=== PATIENT | male | born 1975 | race Asian ===

== ENCOUNTER 2016-05-20 11:25 | Emergency (ER) | payer MEDICAID ==
[2016-05-20] MEDS ORDERED: ASPIRIN 81 MG TABLET, CHEWABLE PO ONE (11:54)
--- NOTE | 2016-05-20 11:55 | ER Document Report ---
ED Medical Screen (RME) - General Stated Complaint: CHEST PAIN Mode of Arrival: Ambulatory Information source: Patient Notes: Patient complains of left-sided chest pain, left-sided neck and left upper extremity pain that started yesterday evening. Patient reports mild cough. Patient denies any nausea or vomiting. Patient does complain of some shortness of breath. hx: Herniated disc in the neck I have greeted and performed a rapid initial assessment of this patient. A comprehensive ED assessment and evaluation of the patient, analysis of test results and completion of the medical decision making process will be conducted by additional ED providers. TRAVEL OUTSIDE OF THE [place] IN LAST 30 DAYS: No - Related Data Allergies/Adverse Reactions: No Known Allergies Allergy (Verified 05/20/16 11:53) Physical Exam - Cardiovascular Rhythm: Tachycardia Heart sounds: S1 appreciated, S2 appreciated
[2016-05-20 12:25] LABS: ABSOLUTE EOSINOPHILS # (AUTO) 0.2 10^3/uL (0.0-0.6); ABSOLUTE LYMPHOCYTES (AUTO) 2.5 10^3/uL (0.5-4.7); ABSOLUTE MONOCYTES (AUTO) 1.2 10^3/uL (0.1-1.4); ABSOLUTE NEUT (AUTO) 4.2 10^3/uL (1.7-8.2); BASOPHILS % (AUTO) 0.5 % (0-2); EOSINOPHILS % (AUTO) 2.1 % (0-6); HEMATOCRIT 46.9 % (37.9-51.0); HEMOGLOBIN 16.3 g/dL (13.5-17.0); LYMPHOCYTES % (AUTO) 31.5 % (13-45); MEAN CORPUSCULAR HEMOGLOBIN 31.2 pg (27.0-33.4); MEAN CORPUSCULAR HGB CONC 34.7 g/dL (32.0-36.0); MEAN CORPUSCULAR VOLUME 90 fl (80-97); MONOCYTES % (AUTO) 14.7 % (3-13); RED BLOOD COUNT 5.21 10^6/uL (4.35-5.55); RED CELL DISTRIBUTION WIDTH 12.7 % (11.5-14.0); SEGMENTED NEUTROPHILS % (AUTO) 51.2 % (42-78); WHITE BLOOD COUNT 8.1 10^3/uL (4.0-10.5)
[2016-05-20 12:43] LABS: ALANINE AMINOTRANSFERASE 62 U/L (21-72); ALBUMIN 4.2 g/dL (3.5-5.0); ALKALINE PHOSPHATASE 73 U/L (38-126); ANION GAP 13 (5-19); ASPARTATE AMINO TRANSFERASE 27 U/L (17-59); BILIRUBIN,TOTAL 0.5 mg/dL (0.2-1.3); BLOOD UREA NITROGEN 17 mg/dL (7-20); CALCIUM 9.7 mg/dL (8.4-10.2); CARBON DIOXIDE 28 mmol/L (22-30); CHLORIDE 101 mmol/L (98-107); CREATINE KINASE 78 U/L (55-170); CREATININE RESULT 1.18 mg/dL (0.52-1.25); GLUCOSE 74 mg/dL (75-110); LIPASE 136.4 U/L (23-300); POTASSIUM 3.6 mmol/L (3.6-5.0); SODIUM 141.6 mmol/L (137-145); TOTAL PROTEIN 7.7 g/dL (6.3-8.2)
[2016-05-20 12:54] LABS: CREATINE KINASE MB 0.28 ng/mL (<4.55)
[2016-05-20 12:55] LABS: TROPONIN I < 0.012 ng/mL
[2016-05-20] MEDS ORDERED: LORAZEPAM INJ 2 MG/1 ML VIAL IV ONE (13:34)
--- NOTE | 2016-05-20 13:40 | ER Document Report ---
ED General - General Chief Complaint: Shoulder Pain Stated Complaint: CHEST PAIN Mode of Arrival: Ambulatory Information source: Patient Notes: This is a 40-year-old gentleman who presents to the emergency department with exacerbation of his left-sided neck pain. As a history of significant cervical disc disease and has been recommended to have surgery. Today he states that the pain is so great that it has radiated into the left side of his chest. He also has left upper extremity pain. This chest pain and left upper extremity pain are new and different from his prior complaints. The chest pain began yesterday at rest and has been intermittent since. He reports mild shortness of breath associated with the pain. No nausea or vomiting no diaphoresis. He is very anxious. Patient does bring a folder with him containing prior medical records from neurosurgical evaluation at [place]. Review of this information demonstrates that he has been recommended to have cervical surgical management and he has been instructed to call when he is ready to schedule the surgery. He states that he has been reluctant to do so because he is nervous about surgery. However he admits that his symptoms have been worsening. TRAVEL OUTSIDE OF THE [place] IN LAST 30 DAYS: No - Related Data Allergies/Adverse Reactions: No Known Allergies Allergy (Verified 05/20/16 11:53) Past Medical History - General Information source: Patient - Social History Smoking Status: Former Smoker Chew tobacco use (# tins/day): No Frequency of alcohol use: None Drug Abuse: None Family History: CVA, DM, Hypertension, Malignancy. denies: CAD Patient has suicidal ideation: No Patient has homicidal ideation: No Renal/ Medical History: Denies: Hx Peritoneal Dialysis Psychiatric Medical History: Reports: Hx Anxiety, Hx Attention Deficit Hyperactivity Disorder, Hx Depression Surgical Hx: Negative Past Surgical History: Reports: None Review of Systems - Review of Systems Notes: REVIEW OF SYSTEMS: CONSTITUTIONAL : Denies fever, chills, or sweats. Denies recent illness. EENT: Denies eye, ear, throat, or mouth pain or symptoms. Denies nasal or sinus congestion. CARDIOVASCULAR: as per HPI. No palpitations, no syncope/presyncope RESPIRATORY: Denies cough, cold, or chest congestion. Denies difficulty breathing, or wheezing. GASTROINTESTINAL: Denies abdominal pain. Denies nausea, vomiting, or diarrhea. Denies constipation. GENITOURINARY: Denies difficulty urinating, painful urination, burning, frequency, or blood in urine. MUSCULOSKELETAL: Neck and LUE pain as per HPI. Patient does endorse left upper extremity weakness and trouble controlling his left hand some time which is not new for him and he has been told that without the neck surgery the symptoms will get worse. SKIN: Denies rash or skin lesions. HEMATOLOGIC : Denies easy bruising or bleeding. LYMPHATIC: Denies swollen, enlarged glands. NEUROLOGICAL: Denies altered mental status or loss of consciousness. Denies headache. PSYCHIATRIC: endorses increased anxiety from his baseline anxiety ALL OTHER SYSTEMS REVIEWED AND NEGATIVE. Physical Exam - Vital signs Vitals: Temp Pulse Resp BP Pulse Ox 98.9 F 122 H 24 H 118/68 99 05/20/16 11:53 05/20/16 11:53 05/20/16 11:53 05/20/16 11:53 05/20/16 11:53 - Notes Notes: PHYSICAL EXAMINATION: GENERAL: well-nourished adult male, conversant, appears very anxious and somewhat tremulous at times. HEAD: Atraumatic, normocephalic. EYES: Pupils equal round and reactive to light, extraocular movements intact, sclera anicteric, conjunctiva are normal. ENT: nares patent, oropharynx clear without exudates. Moist mucous membranes. NECK: Normal range of motion, supple without lymphadenopathy LUNGS: Breath sounds clear to auscultation bilaterally and equal. No wheezes rales or rhonchi. HEART: Regular rate and rhythm without murmurs ABDOMEN: Soft, nontender, normoactive bowel sounds. No guarding, no rebound. No masses appreciated. EXTREMITIES: Normal range of motion, no pitting or edema. No cyanosis. NEUROLOGICAL: Cranial nerves grossly intact. Decreased rehabilitation medicine physician strength L hand. Decreased upper arm extensors LUE. Sensation intact PSYCH: very nervous, anxious affect but pleasant and cooperative SKIN: Warm, Dry, normal turgor, no rashes or lesions noted. Course - Re-evaluation Re-evalutation: 05/20/16 15:02 Patient reevaluated. He states he is feeling significantly better after the Ativan. He still has an anxious affect however he states that his arm pain is gone. 05/20/16 16:55 Results of the second troponin is negative. I had a long discussion with the patient about his lab evaluation and presentation today. He had complete symptom resolution after the IV Ativan. I do suspect that some of his symptoms today are secondary to anxiety along with his worsening cervical radiculopathy he has been anxious and nervous about scheduling the recommended surgery for this and so he has been avoiding it. After our discussion today he has decided that he will proceed with neurosurgical evaluation and treatment, and has decided to call his neurosurgeon in [place] tomorrow. We did discuss the option of admission for observation for chest pain and to obtain a stress test today, however the patient is not agreeable to this at this time. He states that he will follow up with his primary care doctor this week and discuss an outpatient stress test and that in the interim if he has any recurrence of chest discomfort he will return to the emergency department immediately I do feel that from a cardiac standpoint he is relatively low risk as he quit smoking 5 years ago and has no family history of coronary artery disease. He also has no known history of hypertension, hyperlipidemia, or diabetes. Also as noted above he had complete symptom relief after 1 dose of Ativan. All of his questions and that of his family are answered and they are all comfortable with the plan. Patient is reliable to return for worsening symptoms. 05/20/16 17:06 - Vital Signs Vital signs: Temp Pulse Resp BP Pulse Ox 98.9 F 122 H 20 128/91 H 96 05/20/16 11:53 05/20/16 11:53 05/20/16 13:01 05/20/16 13:01 05/20/16 13:01 - Laboratory Result Diagrams: 05/20/16 12:11 05/20/16 12:11 Laboratory results interpreted by me: 05/20/16 05/20/16 05/20/16 12:11 12:11 15:48 Monocytes % 14.7 H Glucose 74 L Urine Protein 30 H Urine Ketones TRACE H Urine Bilirubin SMALL H Urine Ascorbic Acid 40 H - Diagnostic Test Radiology reviewed: Reports reviewed - EKG Interpretation by Me EKG shows normal: Sinus rhythm Rate: Tachycardia Rhythm: NSR [place]/QRS: No: Right axis deviation, Left axis deviation, RBBB, LBBB, IVCD, LAHB/ LAFB, LPHB/LPFB, Bifasicular block P Waves: No: JACQUE, LAE, Absent, AV Dissociation, Other When compared to previous EKG there are: Previous EKG unavailable Discharge - Discharge Clinical Impression: Cervical radiculopathy due to degenerative joint disease of spine, Acute anxiety Chest pain Qualifiers: Chest pain type: unspecified Qualified Code(s): R07.9 - Chest pain, unspecified Condition: Good Disposition: HOME, SELF-CARE Additional Instructions: CHEST PAIN OF UNCLEAR CAUSE: The exact cause of your chest pain isn't clear. Fortunately, there is no evidence of a dangerous medical condition. Further testing may be required to find the source of the pain. Most often, we find that this pain is coming from the chest wall -- the muscles or rib joints in the chest. But chest pain can come from the lung and lung lining, the esophagus, the heart valves or heart lining, and even the stomach or gallbladder. Rest. Eat lightly until the pain is gone. We may prescribe medicine for pain and inflammation. You should call the physician immediately if the pain radiates to the shoulder, jaw or arms; if you start to run a fever or develop a cough; or if you develop shortness of breath, or other new or alarming symptoms. NORMAL EXAM AND WORKUP: At this time, your examination and workup show no significant abnormality. No significant abnormal physical findings were noted. All laboratory studies that were ordered show no significant abnormality. Although your examination and all studies that were ordered showed no significant abnormal finding, there are no examinations and no studies that are 100% accurate. There is always the possibility that some abnormality could exist and not be detected with physical examination or within the limits and capabilities of laboratory and other studies. You should return or follow up as you were instructed on your visit today for further evaluation if your symptoms do not resolve. FOLLOW-UP CARE: If you have been referred to a physician for follow-up care, call the physician s office for an appointment as you were instructed or within the next two days. If you experience worsening or a significant change in your symptoms, notify the physician immediately or return to the Emergency Department at any time for re-evaluation. Follow up with neurosurgery at [place] this week (call tomorrow) as discussed. Continue your current pain control regiment. Follow up with your primary care physician to arrange outpatient stress test, and as we discussed, return to ER for any recurrent chest pain or any worsening symptoms or concerns.
[2016-05-20 16:09] LABS: APPEARANCE,URINE SLIGHTLY-CLOUDY; BILIRUBIN,URINE SMALL (NEGATIVE); GLUCOSE, URINE NEGATIVE (NEGATIVE); KETONES,URINE TRACE mg/dL (NEGATIVE); LEUKOCYTE ESTERASE,URINE NEGATIVE (NEGATIVE); NITRITE,URINE NEGATIVE (NEGATIVE); PROTEIN,URINE 30 mg/dL (NEGATIVE); UROBILINOGEN,URINE NEGATIVE mg/dL (<2.0)
[2016-05-20 16:25] LABS: URINE BARBITURATES SCREEN NEGATIVE; URINE METHADONE SCREEN NEGATIVE; URINE OPIATES LOW NEGATIVE; URINE PHENCYCLIDINE SCREEN NEGATIVE
[2016-05-20 17:20] VITALS: BP 123/89
--- NOTE | 2016-05-20 19:31 | EKG REPORT ---
SEVERITY:- BORDERLINE ECG - SINUS TACHYCARDIA CONSIDER ANTERIOR INFARCT : Confirmed by: Caleb Murray 20-May-2016 19:31:05
--- NOTE | 2016-05-20 19:31 | EKG REPORT ---
SEVERITY:- ABNORMAL ECG - SINUS RHYTHM CONSIDER ANTEROSEPTAL INFARCT : Confirmed by: Caleb Murray 20-May-2016 19:30:59
== END 2016-05-20 17:21 | disposition home or self-care (01) ==
LOC: ER 11:25
DX: M47.22 Other spondylosis with radiculopathy, cervical region (principal); R07.9 Chest pain, unspecified; M54.2 Cervicalgia; M25.512 Pain in left shoulder; Z87.891 Personal history of nicotine dependence
CPT/HCPCS: 93005; 99284; 96374; 36415; 82553; 82550; 83690; 85025; 80053; 81001; 84484; 80307; 85379; 71020; 93010; J2060

== ENCOUNTER → 2016-08-14 | Outpatient (CLI) | payer MEDICAID ==
--- NOTE | 2016-08-14 13:26 | EKG REPORT ---
SEVERITY:- ABNORMAL ECG - SINUS RHYTHM CONSIDER ANTEROSEPTAL INFARCT : Confirmed by: Oliver Nicholson MD 14-Aug-2016 13:25:20
== END ==
LOC: OD 11:31
PROVIDERS: ATTEND Family Medicine
DX: R07.9 Chest pain, unspecified (principal)
CPT/HCPCS: 93005; 93010

== ENCOUNTER → 2017-04-12 | Outpatient (CLI) | payer MEDICAID ==
[2017-04-12 14:59] LABS: HEMATOCRIT 45.6 % (37.9-51.0); HEMOGLOBIN 15.5 g/dL (13.5-17.0); MEAN CORPUSCULAR HEMOGLOBIN 30.7 pg (27.0-33.4); MEAN CORPUSCULAR VOLUME 90 fl (80-97); PLATELET COUNT 296 10^3/uL (150-450); RED BLOOD COUNT 5.04 10^6/uL (4.35-5.55); RED CELL DISTRIBUTION WIDTH 13.7 % (11.5-14.0); WHITE BLOOD COUNT 5.9 10^3/uL (4.0-10.5)
[2017-04-12 15:19] LABS: ALANINE AMINOTRANSFERASE 23 U/L (21-72); ALBUMIN 4.4 g/dL (3.5-5.0); ALKALINE PHOSPHATASE 52 U/L (38-126); ANION GAP 9 (5-19); ASPARTATE AMINO TRANSFERASE 17 U/L (17-59); BILIRUBIN,DIRECT 0.2 mg/dL (0.0-0.4); BILIRUBIN,TOTAL 0.6 mg/dL (0.2-1.3); BLOOD UREA NITROGEN 15 mg/dL (7-20); CALCIUM 9.7 mg/dL (8.4-10.2); CARBON DIOXIDE 29 mmol/L (22-30); CHLORIDE 103 mmol/L (98-107); CHOLESTEROL 188.84 mg/dL (0-200); GLUCOSE 125 mg/dL (75-110); MAGNESIUM 1.8 mg/dL (1.6-2.3); SODIUM 140.9 mmol/L (137-145); TOTAL PROTEIN 7.1 g/dL (6.3-8.2); TRIGLYCERIDES 124 mg/dL (<150)
[2017-04-12 15:30] LABS: DIRECT LDL 131 mg/dL (<100)
[2017-04-12 15:33] LABS: FREE T4 (FREE THYROXINE) 0.94 ng/dL (0.78-2.19)
[2017-04-12 15:47] LABS: THYROID STIMULATING HORMONE 0.95 uIU/mL (0.47-4.68)
--- NOTE | 2017-04-12 16:23 | RADIOLOGY REPORT (SQ) ---
EXAM DESCRIPTION: L SPINE WHOLE COMPLETED DATE/TIME: 04/12/2017 3:13 pm REASON FOR STUDY: ACUTE BILATERAL LOW BACK PAIN M54.5 LOW BACK PAIN COMPARISON: None. NUMBER OF VIEWS: Five views including obliques. TECHNIQUE: AP, lateral, oblique, and sacral radiographic images acquired of the lumbar spine. LIMITATIONS: None. FINDINGS: MINERALIZATION: Normal. SEGMENTATION: Normal. No transitional anatomy. ALIGNMENT: Normal. VERTEBRAE: Maintained height. No fracture or worrisome bone lesion. DISCS: Preserved height. No significant osteophytes or end plate irregularity. POSTERIOR ELEMENTS: Pedicles and facets are intact. No pars defect or posterior arch defects. HARDWARE: None in the spine. PARASPINAL SOFT TISSUES: Normal. PELVIS: Intact as visualized. No fractures or worrisome bone lesions. SI joints intact. OTHER: No other significant finding. IMPRESSION: NORMAL 5 VIEW LUMBAR SPINE. TECHNICAL DOCUMENTATION: JOB ID: [id number] [employer]- All Rights Reserved
== END ==
LOC: OD 14:26
PROVIDERS: ATTEND Family Medicine
DX: M54.5 Low back pain (principal); R00.2 Palpitations; R06.09 Other forms of dyspnea; Z79.899 Other long term (current) drug therapy
CPT/HCPCS: 36415; 72110; 80048; 80061; 80076; 83735; 84439; 84443; 85027

== ENCOUNTER 2017-05-14 11:55 | Day surgery (SDC) | payer MEDICAID ==
[~2017-05-14 11:55] MED LIST: DIPHENHYDRAMINE HCL 50 MG/ML VIAL ONE; EPINEPHRINE INJ 1 MG/10 ML DISP.SYRIN ONE; FLUMAZENIL INJ 0.5 MG/5 ML VIAL ONE; GLUCAGON,HUMAN RECOMB 1 MG INJ ONE; MIDAZOLAM 2 MG/2 ML INJ ONE; NALOXONE HCL INJ/PF 0.4 MG/1 ML SDV ONE; ONDANSETRON HCL INJ/PF 4 MG/2 ML SDV ONE
[2017-05-14] MEDS: MIDAZOLAM 2 MG/2 ML INJ ONE ×2 (12:24→12:28)
[2017-05-14] MEDS ORDERED: BENZOCAINE 20% AEROSOL SPRAY 60 GM ONE (12:24)
[2017-05-14] MEDS: FENTANYL CITRATE INJ/PF 100 MCG/2 ML AMPUL ONE ×2 (12:26→12:30)
--- NOTE | 2017-05-14 13:27 | Operative Report ---
Operative Report DATE OF SURGERY: 05/14/17 Operative Report: The risks benefits and alternatives of the procedure explained to the patient in detail and informed consent is obtained.A GIF Olympus video scope was inserted into the patient's mouth and hypopharynx, the esophagus is identified intubated and insufflated ,the scope was then advanced through the esophagus stomach and duodenum, retroflexion maneuver is done, the esophagus stomach and first and second portions of the duodenum examined PREOPERATIVE DIAGNOSIS: Dysphagia POSTOPERATIVE DIAGNOSIS: Esophageal rings noted status post biopsy rule out eosinophilic esophagitis. Gastritis status post biopsy rule out Helicobacter pylori OPERATION: EGD with biopsy SURGEON: DORIAN DICKINSON ANESTHESIA: Moderate Sedation - 4 mg of Versed, 100 mcg of fentanyl. Conscious sedation monitoring time 30 minutes. TISSUE REMOVED OR ALTERED: As noted above. COMPLICATIONS: None. ESTIMATED BLOOD LOSS: None. INTRAOPERATIVE FINDINGS: As noted above. PROCEDURE: Patient tolerated procedure well. No immediate postprocedure complications are noted. Patient discharged in good condition. Discharge date 05/14/2017. Discharge diet: Regular. Discharge activity: Regular. 2-3 week follow-up to discuss findings. Patient is instructed to call the office or proceed to the emergency room should there be any further problems or questions. We will await pathology.
[2017-05-14 13:39] VITALS: BP 115/80
== END 2017-05-14 13:40 | disposition home or self-care (01) ==
LOC: END 11:55
PROVIDERS: ATTEND Internal Medicine Gastroenterology
PROC: 0DB68ZX Excision of Stomach, Via Natural or Artificial Opening Endoscopic, Diagnostic (ICD-10-PCS; 2017-05-14)
PROC: 0DB58ZX Excision of Esophagus, Via Natural or Artificial Opening Endoscopic, Diagnostic (ICD-10-PCS; principal; 2017-05-14 12:30)
DX: K22.2 Esophageal obstruction (principal); K29.50 Unspecified chronic gastritis without bleeding; Z79.899 Other long term (current) drug therapy
CPT/HCPCS: 43239; 88305 ×2; J2250; J3490; J3010; J0171; J1200; J1610; J2310; J2405

== ENCOUNTER 2017-06-06 09:46 | Emergency (ER) | payer MEDICAID ==
[2017-06-06] MEDS ORDERED: HYDROXYZINE PAMOATE 25 MG CAPSULE PO ONE (10:36)
[2017-06-06 10:42] LABS: ABSOLUTE LYMPHOCYTES (AUTO) 2.7 10^3/uL (0.5-4.7); ABSOLUTE MONOCYTES (AUTO) 0.5 10^3/uL (0.1-1.4); ABSOLUTE NEUT (AUTO) 5.1 10^3/uL (1.7-8.2); BASOPHILS % (AUTO) 0.5 % (0-2); EOSINOPHILS % (AUTO) 0.5 % (0-6); HEMATOCRIT 49.4 % (37.9-51.0); HEMOGLOBIN 16.9 g/dL (13.5-17.0); MEAN CORPUSCULAR HEMOGLOBIN 30.9 pg (27.0-33.4); MEAN CORPUSCULAR HGB CONC 34.2 g/dL (32.0-36.0); MEAN CORPUSCULAR VOLUME 90 fl (80-97); MONOCYTES % (AUTO) 6.3 % (3-13); PLATELET COUNT 392 10^3/uL (150-450); RED BLOOD COUNT 5.48 10^6/uL (4.35-5.55); RED CELL DISTRIBUTION WIDTH 13.4 % (11.5-14.0); SEGMENTED NEUTROPHILS % (AUTO) 60.7 % (42-78); TOTAL CELLS COUNTED % (AUTO) 100 %; WHITE BLOOD COUNT 8.4 10^3/uL (4.0-10.5)
--- NOTE | 2017-06-06 10:50 | ER Document Report ---
ED General - General Chief Complaint: General Weakness Stated Complaint: WEAKNESS Time Seen by Provider: 06/06/17 10:17 Notes: Patient was at his car shakeout operator's office this morning to have a Holter monitor placed when he began to feel very weak in his legs and numb in his feet, legs, hands, and face. They just suddenly "went numb". He has never had anything like this happen before. He also experienced some difficulty breathing, but he has had this difficulty since he was a teenager. Also has had chest pains and palpitations since his teens, but none at this moment. Patient felt as if he might pass out so he was assisted down and never experienced a loss of consciousness. He did not feel nauseated and did not vomit. He has not been sick recently. No fevers, chills, sweats, etc. Patient has a history of anxiety and depression on Wellbutrin and Celexa. Has chronic pain in his lumbar back and is scheduled to have an MRI. Has had a neck fusion. Has never had any documented cardiac disease. Does not take any medications for diabetes, high blood pressure, or for heart disease. TRAVEL OUTSIDE OF THE [place] IN LAST 30 DAYS: No - Related Data Allergies/Adverse Reactions: No Known Allergies Allergy (Verified 05/14/17 12:00) Past Medical History - Social History Smoking Status: Former Smoker Cigarette use (# per day): No Family History: Reviewed & Not Pertinent, CVA, DM, Hypertension, Malignancy. denies: CAD - Past Medical History Cardiac Medical History: Denies: Hx Coronary Artery Disease, Hx Heart Attack, Hx Hypertension Pulmonary Medical History: Reports: Hx Asthma - HX Denies: Hx Bronchitis, Hx COPD, Hx Pneumonia Neurological Medical History: Denies: Hx Cerebrovascular Accident, Hx Seizures Endocrine Medical History: Denies: Hx Diabetes Mellitus Type 1, Hx Diabetes Mellitus Type 2 Musculoskeltal Medical History: Denies Hx Arthritis Psychiatric Medical History: Reports: Hx Anxiety, Hx Attention Deficit Hyperactivity Disorder, Hx Depression Past Surgical History: Reports: Hx Orthopedic Surgery - Cervical fusion - Immunizations Hx Diphtheria, Pertussis, Tetanus Vaccination: Yes Review of Systems - Review of Systems Notes: REVIEW OF SYSTEMS: CONSTITUTIONAL : Denies fever. Appears anxious. EENT: Denies eye, ear, nose or mouth or throat pain or other symptoms. CARDIOVASCULAR: See HPI. RESPIRATORY: See HPI. GASTROINTESTINAL: Denies abdominal pain or nausea, vomiting, or diarrhea. GENITOURINARY: Denies difficulty or painful urinating, urinary frequency, blood in urine. MUSCULOSKELETAL: Denies back or neck pain. Denies joint pain or swelling. SKIN: Denies rash or skin lesions. NEUROLOGICAL: Denies LOC or altered mental status. Denies headache. Denies sensory loss or motor deficits. ALL OTHER SYSTEMS REVIEWED AND NEGATIVE. Physical Exam - Vital signs Vitals: Temp Resp BP 97.9 F 21 H 118/92 H 06/06/17 09:55 06/06/17 09:55 06/06/17 09:55 Interpretation: Normal - Notes Notes: PHYSICAL EXAMINATION: GENERAL: Well-appearing, in no acute distress. Anxious appearing. HEAD: Atraumatic, normocephalic. EYES: Pupils equal round and reactive to light, extraocular movements intact. ENT: oropharynx clear without exudates. Moist mucous membranes. NECK: Normal range of motion, supple. LUNGS: Breath sounds clear and equal bilaterally. HEART: Regular rate and rhythm without murmurs. ABDOMEN: Soft, nontender. No guarding or rebound. No masses. BACK: No tenderness throughout entire back. EXTREMITIES: Normal range of motion without pain. Negative Homans bilaterally. NEUROLOGICAL: Normal speech, normal gait. Normal sensory, motor, and reflex exams. Awake, alert, and oriented x3. Cranial nerves normal. PSYCH: Normal mood, normal affect. Anxious appearing, may be depressed. Denies suicidal or homicidal thoughts. SKIN: Warm, dry, no rashes. Course - Re-evaluation Re-evalutation: 06/06/17 19:07 Patient's bicarb level and anion gap and ketones in the urine are concerning, but the patient says he has not been eating or drinking well. I encouraged him to drink plenty of liquids over the next few days and see if he is not feeling better. - Vital Signs Vital signs: Temp Pulse Resp BP Pulse Ox 98.5 F 80 18 117/82 100 06/06/17 12:31 06/06/17 12:31 06/06/17 12:31 06/06/17 12:31 06/06/17 12:31 - Laboratory Result Diagrams: 06/06/17 09:37 06/06/17 09:37 Laboratory results interpreted by me: 06/06/17 06/06/17 09:37 11:35 Carbon Dioxide 16 L Anion Gap 21 H Direct Bilirubin 0.5 H Urine Ketones 80 H Urine Urobilinogen 2.0 H - EKG Interpretation by Me EKG shows normal: Sinus rhythm Rate: Normal - Heart rate 82 Rhythm: NSR Additional EKG results interpreted by me: 06/06/17 10:51 EKG has nonspecific T-wave and ST changes, nothing acute. Discharge - Discharge Clinical Impression: Dehydration, Anxiety Condition: Stable Disposition: HOME, SELF-CARE Additional Instructions: Dehydration Dehydration can result from vomiting or diarrhea, fever, or decreased intake of fluids. If severe, hospitalization and intravenous fluids may be required. Most cases are treated at home with fluids by mouth. For the next 24 hours, drink lots of clear fluids. In mild cases, this can be soda pop or sports drinks. For more severe dehydration, the doctor may recommend special fluids such as Pedialyte or Lytren. Try to get three liters ( 3 quarts) of fluid per day. If vomiting occurs, continue to drink the fluids frequently (every 15 to 20 minutes), but in small amounts (one or two ounces). Depending on the type of dehydration, the doctor may prescribe antinausea medicine or potassium replacements. Call the doctor or return for re-examination if you become progressively weak, vomit repeatedly, or have other new symptoms. NORMAL EXAM AND WORKUP: At this time, except for your blood and urine indicating that she may be somewhat dehydrated, your examination and workup show no significant abnormality. No significant abnormal physical findings were noted. All laboratory, EKG, and imaging (x-ray, CT scans, ultrasound) studies that were ordered show no significant abnormality. Although your examination and all studies that were ordered showed no significant abnormal finding, there are no examinations and no studies that are 100% accurate. There is always the possibility that some abnormality could exist and not be detected with physical examination or within the limits and capabilities of laboratory and other studies. You should return or follow up as you were instructed on your visit today for further evaluation if your symptoms do not resolve. Anxiety The physician feels that some of your health problems are being caused by anxiety. Anxiety affects your health in many ways. Anxiety alone can cause palpitations, sweats, chest pains, abdominal pains, shortness of breath, and headaches. It contributes to ulcer disease, high blood pressure, irritable bowel syndrome, and has been shown to cause flare-ups of many other diseases. Anxiety is not a simple disorder to treat. If the anxiety is due to recent life stresses, you may simply need time to "work through" the changes. If the anxiety is due to an underlying unhappiness with yourself or due to psychiatric disturbance, professional help will be needed. Your physician can refer you for further help if needed. Anti-anxiety medication is occasionally given if the stress is acute or if you are having trouble sleeping. Chronic or frequent use of these medications is not a good idea because the body becomes reliant on it, preventing you from dealing with life's normal stresses. FOLLOW-UP CARE: If you have been referred to a physician for follow-up care, call the physician s office for an appointment as you were instructed or within the next two days. If you experience worsening or a significant change in your symptoms, notify the physician immediately or return to the Emergency Department at any time for re-evaluation. See your doctor and car shakeout operator about completing your Holter monitor and other workup.
[2017-06-06 10:56] LABS: ALANINE AMINOTRANSFERASE 43 U/L (21-72); ALBUMIN 4.7 g/dL (3.5-5.0); ALKALINE PHOSPHATASE 71 U/L (38-126); ASPARTATE AMINO TRANSFERASE 28 U/L (17-59); BILIRUBIN,DIRECT 0.5 mg/dL (0.0-0.4); BILIRUBIN,TOTAL 1.2 mg/dL (0.2-1.3); BLOOD UREA NITROGEN 19 mg/dL (7-20); CALCIUM 10.2 mg/dL (8.4-10.2); CHLORIDE 102 mmol/L (98-107); GLUCOSE 96 mg/dL (75-110)
[2017-06-06 11:04] LABS: CARBON DIOXIDE 16 mmol/L (22-30); POTASSIUM 4.2 mmol/L (3.6-5.0); SODIUM 138.9 mmol/L (137-145)
[2017-06-06 11:08] LABS: ANION GAP 21 (5-19); CREATINE KINASE MB 0.44 ng/mL (<4.55)
[2017-06-06 11:09] LABS: TROPONIN I < 0.012 ng/mL
--- NOTE | 2017-06-06 11:15 | RADIOLOGY REPORT (SQ) ---
EXAM DESCRIPTION: CHEST PA/LAT COMPLETED DATE/TIME: 06/06/2017 10:52 am REASON FOR STUDY: Chest pain since he was a teenager COMPARISON: 05/20/2016 NUMBER OF VIEWS: Two view. TECHNIQUE: Frontal and lateral radiographic views of the chest acquired. LIMITATIONS: None. FINDINGS: LUNGS AND PLEURA: No opacities, masses or pneumothorax. No pleural effusion. MEDIASTINUM AND HILAR STRUCTURES: No masses or contour abnormalities. HEART AND VASCULATURE: Heart normal size. No evidence for failure. BONY STRUCTURES: No acute findings. HARDWARE: None. OTHER: No other significant finding. IMPRESSION: NO SIGNIFICANT RADIOGRAPHIC FINDING IN THE CHEST. TECHNICAL DOCUMENTATION: JOB ID: [id number] [employer]- All Rights Reserved
[2017-06-06 11:54] LABS: APPEARANCE,URINE SLIGHTLY-CLOUDY; BILIRUBIN,URINE NEGATIVE (NEGATIVE); COLOR,URINE YELLOW; GLUCOSE, URINE NEGATIVE (NEGATIVE); KETONES,URINE 80 mg/dL (NEGATIVE); LEUKOCYTE ESTERASE,URINE NEGATIVE (NEGATIVE); NITRITE,URINE NEGATIVE (NEGATIVE); PROTEIN,URINE NEGATIVE (NEGATIVE); URINE SPECIFIC GRAVITY 1.031
[2017-06-06 12:32] VITALS: BP 117/82
--- NOTE | 2017-06-06 13:24 | EKG REPORT ---
SEVERITY:- BORDERLINE ECG - SINUS RHYTHM CONSIDER ANTERIOR INFARCT : Confirmed by: Oliver Nicholson MD 06-Jun-2017 13:24:15
== END 2017-06-06 12:32 | disposition home or self-care (01) ==
LOC: ER 09:46
DX: E86.0 Dehydration (principal); F41.9 Anxiety disorder, unspecified; R53.1 Weakness; G89.29 Other chronic pain; M54.5 Low back pain; Z87.891 Personal history of nicotine dependence
CPT/HCPCS: 93005; 99285; 36415; 82553; 85025; 80053; 81001; 84484; 71046; 93010; J3490

== ENCOUNTER → 2017-07-09 | Outpatient (CLI) | payer MEDICAID ==
--- NOTE | 2017-07-11 08:45 | RADIOLOGY REPORT ---
STRESS TEST REPORT PATIENT NAME: KARL VARNER ROOM#: DATE OF SERVICE: 07/09/2017 AGE: 41Y ORDER#: [id number] REFERRING MD: CISCO VELA M.D. INDICATION: Assess exertional dyspnea. PROCEDURE PERFORMED: REST/STRESS SINGLE ISOTOPE CARDIOLITE SPECT IMAGING WITH EXERCISE STRESS AND GATED SPECT IMAGING CLINICAL HISTORY: This 41-year-old male with no known coronary artery disease but has been complaining of mild palpitations and exertional dyspnea, no coronary artery risk factors. REPORT: Patient performed treadmill exercise using a standard Jair protocol completing only three minutes and an estimated workload of 4 METs. The resting heart rate was 108 bpm and increased to 153 bpm at peak exercise. This was 88% of the maximum predicted heart rate for age. The blood pressure response to exercise was normal, resting blood pressure was 125/88 and blood pressure at peak exercise was 137/77. Patient developed symptoms of severe exertional dyspnea, 3.5/5, after one minute of exercise at a heart rate of 135 bpm. He was unable to continue exercise beyond the three minutes. The resting 12-lead EKG showed normal sinus rhythm at 90 bpm, nonspecific lateral STT changes. At peak exercise, no additional STT changes to suggest ischemia were seen. Myocardial perfusion was performed at rest 60 minutes following the injection of 10.89 mCi of Cardiolite. At peak exercise, the patient was injected with 28.1 mCi of Cardiolite and exercise continued for one more minute. Gated post-stress tomographic imaging was performed 60 minutes after stress. FINDINGS: The overall quality of the study is fair. The left ventricular cavity is noted to be normal in size on both the rest and stress studies. There is no evidence of abnormal transient ischemic dilatation of the left ventricle. SPECT images showed a moderate fixed perfusion defect in the apical inferior wall with normal motion contraction in this area consistent with soft-tissue attenuation. There is no reversible ischemia. The gated SPECT imaging showed normal motion contraction of all LV segments. The left ventricular ejection fraction was calculated to be 41%. IMPRESSION: Myocardial perfusion imaging is normal. There is a small area of moderately fixed perfusion defect in the apical inferior wall but with normal motion contraction in that area, consistent with soft-tissue attenuation. There was no reversible ischemia. The left ventricular systolic function was 41%; this needs to be confirmed by echocardiography. There was no motion contraction abnormality in any of the left ventricular segments. No prior study for comparison. INTERPRETING PHYSICIAN: CISCO VELA M.D. /: RAHUL TT: 0826 ID: [id number] /: [id number] TD: [id number] JOB: [id number] cc:CISCO VELA M.D. > MTDD
== END ==
LOC: RAD 06:06
PROVIDERS: ATTEND Internal Medicine Cardiovascular Disease
DX: R06.09 Other forms of dyspnea (principal)
CPT/HCPCS: 93017; 78452; A9500; Q9969

== ENCOUNTER → 2017-07-24 | Outpatient (CLI) | payer MEDICAID ==
[2017-07-24 17:06] LABS: ANION GAP 12 (5-19); BLOOD UREA NITROGEN 11 mg/dL (7-20); CALCIUM 9.7 mg/dL (8.4-10.2); CARBON DIOXIDE 29 mmol/L (22-30); CHLORIDE 102 mmol/L (98-107); GLUCOSE 109 mg/dL (75-110); POTASSIUM 4.1 mmol/L (3.6-5.0); SODIUM 142.8 mmol/L (137-145)
== END ==
LOC: OD 15:44
PROVIDERS: ATTEND Internal Medicine Cardiovascular Disease
DX: R73.01 Impaired fasting glucose (principal); R00.2 Palpitations
CPT/HCPCS: 36415; 80048; 83036; 83880

== ENCOUNTER 2018-08-20 07:18 | Day surgery (SDC) | payer MEDICARE, MEDICAID ==
[~2018-08-20 07:18] MED LIST changes: +FENTANYL CITRATE INJ/PF 100 MCG/2 ML AMPUL ONE
--- NOTE | 2018-08-20 08:10 | Operative Report ---
Operative Report DATE OF SURGERY: 08/20/18 Operative Report: The risks benefits and alternatives of the procedure explained to the patient in detail and informed consent is obtained.A GIF Olympus video scope was inserted into the patient's mouth and hypopharynx, the esophagus is identified intubated and insufflated ,the scope was then advanced through the esophagus stomach and duodenum, retroflexion maneuver is done, the esophagus stomach and first and second portions of the duodenum examined. PREOPERATIVE DIAGNOSIS: Globus sensation POSTOPERATIVE DIAGNOSIS: Esophagitis versus Armijo's status post biopsy of the distal esophagus to rule out Armijo's esophagus. Hiatal hernia. Gastritis status post biopsy for Helicobacter pylori. Probable Schatzki's ring OPERATION: EGD with biopsy SURGEON: DORIAN DICKINSON ANESTHESIA: LMAC TISSUE REMOVED OR ALTERED: As noted above. COMPLICATIONS: None. ESTIMATED BLOOD LOSS: None. INTRAOPERATIVE FINDINGS: As noted above. PROCEDURE: Patient tolerated the procedure well. No immediate postprocedure complications are noted. Patient discharged in good condition. Discharge date 08/20/2018. Discharge diet: Regular. Discharge activity: Regular. 2 to 3-week follow-up to discuss findings. Patient is instructed to call the office or proceed to the emergency room should there be any further proximal questions. Wait on the pathology.
[2018-08-20 09:08] VITALS: BP 115/80
== END 2018-08-20 09:10 | disposition home or self-care (01) ==
LOC: END 07:18
PROVIDERS: ATTEND Internal Medicine Gastroenterology
DX: R13.10 Dysphagia, unspecified (principal); K44.9 Diaphragmatic hernia without obstruction or gangrene; K29.50 Unspecified chronic gastritis without bleeding; Z87.891 Personal history of nicotine dependence; Z79.899 Other long term (current) drug therapy
CPT/HCPCS: 43239; 88305 ×2; J2250; J3010; J0171; J1200; J1610; J2310; J2405; J3490